=== PATIENT | female | born 1955 | race Caucasian/White ===

== ENCOUNTER 2019-02-28 10:49 | Emergency (ER) | payer BC ==
--- OUTSIDE RECORDS SUMMARY | 2019-02-28 10:58 | XMS REPORT | Continuity of Care Document ---
:1955 External Reference #:[id number] Author Name Nigel Lynne MD Address [address] [place] [address] Care Team Providers Name Role Phone Geremias Chery DO Care Team Information Sensor Technician Unavailable Geremias Chery DO Primary Care Physician Unavailable Payers Date Identification Numbers Payment Provider Subscriber Policy Number: [id number] [employer] Susi Gaffney PayID: [id number] [address] [address] [place] [address] Family History Date Family Member(s) Observation Comments Father Renal Failure Syndrome Father Hypertension Father Heart Disease Father Ulcer Mother Heart Murmur Social History Type Date Description Comments Sex Unknown Marital Status Lives With Occupation Currently Working ETOH Use Denies alcohol use Tobacco Use Start: Unknown Patient is a current smoker, smokes every day Recreational Drug Use Denies Drug Use Smoking Status Reviewed: 02/09/19 Patient is a current smoker, smokes every day Allergies, Adverse Reactions, Alerts Active Allergies Reaction Severity Comments Date Penicillin 09/19/2018 Clindamycin 09/19/2018 Medications Active Medications SIG Qnty Indications Ordering Provider Date Uribel 1 tab by mouth 20caps Brunilda Vela, 09/19/2018 118mg Capsules up to four M.D. times a day daw_! Lorazepam prn Geremias Chery, DO 1mg Tablets Hydrocodone-Acetaminop prn Geremias Chery, DO hen 5-325mg Tablets Co Q 10 1 by mouth Unknown 100mg Capsules every day GNP [place] Biloba 1 cap daily Unknown Extract 60mg Capsules Zinc And Vitamin C 1 po daily Unknown Gummies Multi For Her 1 tab by mouth Unknown Tablets every daily Michelle Puente MD 90mg/ml Soln Prefill Syringe History Medications Humira Every 2 weeks Unknown - 11/14/2018 40mg/0.4ML PSKT Vital Signs Date Vital Result Comment 11/14/2018 9:21am BP Systolic Sitting Left Arm 112 mmHg BP Diastolic Sitting Left Arm 77 mmHg Body Temperature 98.0 F Heart Rate 82 /min Respiratory Rate 16 /min Height 58 inches 4'10" Weight 93.50 lb BMI (Body Mass Index) 19.5 kg/m2 BSA (Body Surface Area) 1.32 m2 [place] body weight in kilograms 45 kg O2 % BldC Oximetry 93 % cold fingers Pain Level 0 09/19/2018 10:21am BP Systolic 118 mmHg BP Diastolic 81 mmHg Body Temperature 97.2 F Heart Rate 84 /min Respiratory Rate 16 /min Height 58 inches 4'10" Weight 94.12 lb BMI (Body Mass Index) 19.7 kg/m2 BSA (Body Surface Area) 1.32 m2 [place] body weight in kilograms 45 kg O2 % BldC Oximetry 98 % Results Test Date Facility Test Result H/L Range Note Urine Dipstick 11/14/2018 [facility]a Color yellow Yellow Ua Clarity clear Clear Ua Leuko negative Negative Ua Nitrite negative Negative Ua Urobilinogen 0.2 0.2 - 1.0 E.U./dL Ua Protein 15 High Negative Ua PH 6.0 Low 6.5-7.5 Ua Blood negative Negative Ua Specific Mccarr 1.020 1.010-1.030 Ua Ketones negative Negative Ua Bilirubin negative Negative Ua Glucose negative Negative Laboratory test 11/10/2015 [facility] Troponin-I < 0.015 [address] ng/[place] [address] [phone] Laboratory test 11/10/2015 N2N/CCD Import Urine Bilirubin Negative Negative finding Urine Blood Trace Negative Urine Clarity Clear Clear Urine Color Yellow Yellow Urine Glucose (Ua) Negative Negative Urine Ketones Negative Negative Urine Leukocyte Esterase Negative Negative Urine Nitrite Negative Negative Urine Protein Negative Negative Urine Urobilinogen 0.2 0.2-1.0 Urine pH 5.0 Low 6.5-7.5 Laboratory test 11/10/2015 N2N/CCD Import Alanine Aminotransferase 28 12 -78 finding (Alt/SGPT) Albumin 3.5 3.4-5.0 Albumin/Globulin Ratio 0.8 Alkaline Phosphatase 144 High 45-117 Anion Gap 7 Low 8-16 Aspartate Amino Transf (Ast/Sgot) 21 15-37 BUN/Creatinine Ratio 20.0 Blood Urea Nitrogen 18 7-18 Calcium Level 8.6 8.5-10.1 Carbon Dioxide Level 23 21-32 Chloride Level 108 High 98-107 Creatinine 0.9 0.6-1.3 Globulin 4.5 High 1.9-4.3 Glucose Screen 99 74-106 Hematocrit 38.3 36.0-46.1 Hemoglobin 12.5 11.6-15.8 Mean Corpuscular Hemoglobin 28.8 25.9-32.7 Mean Corpuscular Hemoglobin Concent 32.6 30.8-34.3 Mean Corpuscular Volume 88.2 80.9-99.0 Mean Platelet Volume 9.5 8.9-12.4 Platelet Count 375 High 155-360 Potassium Level 4.0 3.5-5.1 RDW Coefficient of Variation 13.8 11.7-14.4 Red Blood Count 4.34 3.90-5.40 Sodium Level 138 136-145 Total Bilirubin 0.4 0.2-1.0 Total Creatine Kinase 106 26-192 Total Protein 8.0 6.4-8.2 White Blood Count 6.5 3.1-10.7 1 0.0 - 0.045 ng/mL: Normal 0.046 - 0.5 ng/mL: Suggestive 0.6 - 1.5 ng/mL: Consistent Procedures Date Code Description Status 02/09/2019 53227 Eye Exam New Patient Comprehensive Completed 11/14/2018 82926 Measurement Post Voiding Residual Urine By Completed Ultrasound,Non-Imaging 12/27/2015 48973 ECHO Transthoracic Inc Performance Continuous Completed Electrocardio Mon Encounters Type Date Location Provider Dx Diagnosis Office Visit 11/14/2018 Urology Aron Diaz, N30.80 Other cystitis 9:15a [place] without hematuria Office Visit 09/19/2018 Urology Aron Diaz, N30.80 Other cystitis 10:30a [place] without hematuria N20.0 Calculus of kidney Office Visit 11/10/2015 8:58a Cardiology Office Juan Carlos Moore MD M79.602 Pain in left arm Plan of Treatment Future Appointment(s):05/12/2019 8:45 am - Nigel Lynne MD at Ophthalmology
--- OUTSIDE RECORDS SUMMARY | 2019-02-28 10:58 | XMS REPORT | Continuity of Care Document ---
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 Unavailable Payers Date Identification Numbers Payment Provider Subscriber Effective: 2017 Policy Number: [id number] [employer] Susi Gaffney Group Number: [employer] [address] [address] Group Name: [facility] [place] [id number] PayID: [id number] Effective: 2019 Policy Number: [id number] Medicare Part B Susi Gaffney Group Name: [facility] [address] PayID: [id number] [place] [address] Problems Active Problems Provider Date Tobacco user Geremias Chery DO Onset: 06/04/2014 Crohn's disease of small AND large intestines Geremias Chery DO Onset: 06/04 Social History Type Date Description Comments Sex Unknown Education Higest level completed, Bachelor's Degree 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 Tobacco Use Start: Unknown Current Cigarette Smoker 5-10 Cigarettes Daily ETOH Use Occasionally consumes wine Recreational Drug Use Denies Drug Use Allergies, Adverse Reactions, Alerts Active Allergies Reaction Severity Comments Date Penicillin 06/04/2014 Clindamycin Lump In Throat 12/06/2016 Medications Active Medications SIG Qnty Indications Ordering Date Provider Azithromycin 2 tablets by 6tabs J20.9 Geremias Chery, 02/24/2019 250mg mouth on day 1 DO Tablets then 1 tablet on days 2-5 Coq-10 Geremias Chery, 08/26/2018 100mg Capsules DO ER Hydrocodone-Acetamino 1 by mouth every 120tabs Chery, Geremias, 08/07/2016 phen 6 hours as needed DO 5-325mg Tablets Lorazepam 1/2 to 1 by mouth 30tabs Chery, Geremias, 12/07/2014 1mg Tablets every night at DO bedtime as needed anxiety - do not fill until 02/11/19 Stelara Unknown 45mg/0.5ML Solution Prednisone take 8 tablets Unknown 5mg (48) one day then TBPK decrease by 1 tablet everyday until they are gone History Medications Azithromycin 2 tablets by 6tabs J20.9 Chery, 11/28/2018 - 250mg mouth on day 1 Geremias, DO 12/03/2018 Tablets then 1 tablet on days 2-5 Albuterol Sulfate HFA 2 puffs every 4-6 8.500gm J20.9 Chery, 11/28/2018 - hours as needed Geremias, DO 01/16/2019 108(90Base) mcg/Act for cough, sob, Aerosol wheezing Tamsulosin HCL 1 by mouth every 14caps Chery, 08/30/2018 - 0.4mg day Geremias, DO 11/28/2018 Capsules Nitrofurantoin Monohyd 1 by mouth twice 14caps R30.0 Chery, 08/26/2018 - Macro a day x 7 days Geremias, DO 09/02/2018 100mg Capsules Azithromycin 1 by mouth every 7tabs Chery, 01/29/2018 - 500mg day Geremias, DO 02/05/2018 Tablets Phenazopyridine HCL 1 by mouth three 6tabs Chery, 10/11/2017 - 200mg times a day Geremias, DO 01/29/2018 Tablets Sulfamethoxazole/Trime 1 tablet by mouth 14tabs J01.90 Chery, 10/09/2017 - thoprim DS twice daily for 7 Geremias, DO 10/16/2017 800-160mg days Tablets Betamethasone 1 thin 15gm R21 Chery, 06/19/2017 - Dipropionate application to Geremias, DO 01/29/2018 0.05% Cream chest twice daily for 10 days Prednisone 3 pills daily x 5 30tabs Chery, 07/27/2016 - 10mg Tablets days, then 2 Geremias, DO 08/07/2016 pills daily x 5 days, then 1 pills daily x 5 days Prednisone 2 by mouth with 10tabs M54.5 Chery, 07/11/2016 - 20mg Tablets food once a day Geremias, DO 07/16/2016 Tylenol With Codeine 1 po q 6 hours 30tabs M25.551 Chery, 05/17/2016 - #3 prn pain Geremias, DO 07/11/2016 300-30mg Tablets Azithromycin 2 by mouth x 1, 6tabs K05.01 Chery, 05/07/2016 - 250mg then 1 by mouth Geremias, DO 05/12/2016 Tablets daily x 4 days Clindamycin HCL 1 by mouth twice 14caps K05.01 Chery, 05/05/2016 - 300mg a day Geremias, DO 05/07/2016 Capsules Fluticasone Propionate 1 spray each 16units H68.002 Chery, 05/05/2016 - nostril twice a Geremias, DO 04/23/2018 50mcg/Act Suspension day Sertraline HCL 1 by mouth every 90tabs F43.0 Chery, 12/13/2015 - 50mg day Geremias, DO 01/11/2016 Tablets Nasonex 2 sprays each 34gm Chery, 06/15/2015 - 50mcg/Act nostril every day Geremias, DO 10/09/2017 Suspension Veramyst 2 sprays each 10gm J30.9 Chery, 06/14/2015 - 27.5mcg/[place] nostril 1-2 times Geremias, DO 06/14/2015 Suspension a day Fluticasone Propionate 1 spray each 1units J30.9 Chery, 06/14/2015 - nostril 1-2 times Geremias, DO 06/15/2015 50mcg/Act Suspension a day Azithromycin 1 by mouth every 5tabs J02.9 Chery, 05/09/2015 - 500mg day Geremias, DO 05/14/2015 Tablets Oxybutynin Chloride 1 by mouth every 90tabs Chery, 10/22/2014 - 5mg night at bedtime Geremias, DO 01/25/2017 Tablets Lorazepam 1 by mouth every 30tabs Chery, 06/04/2014 - 0.5mg Tablets night at bedtime Geremias, DO 12/07/2014 as needed anxiety Oxybutynin Chloride 1 by mouth QHS 90units Unknown - 10/22/2014 5mg/5ML Syrup Remicade DR Dinero/Hannah Unknown - 100mg Solution Medical 05/17/2016 Kami Disla Q2 Weeks Unknown - Injections 11/28/2018 Prednisone 1 by mouth every Unknown - 5mg Tablets day 01/16/2019 Immunizations CPT Code Status Date Vaccine Lot # [id number] Refused 01/19/2019 Tdap (Adacel) Ages 7 And Above Only [id number] Refused 04/23/2018 Afluria Imunization Vital Signs Date Vital Result Comment 02/24/2019 10:57am Body Temperature 97.0 F Weight 104.00 lb Heart Rate 87 /min BP Systolic 120 mmHg BP Diastolic 78 mmHg Respiratory Rate 18 /min Height 58 inches 4'10" O2 % BldC Oximetry 98 % BMI (Body Mass Index) 21.7 kg/m2 01/19/2019 9:05am Weight 94.00 lb Heart Rate 88 /min BP Systolic 110 mmHg BP Diastolic 68 mmHg Respiratory Rate 18 /min Height 58 inches 4'10" BMI (Body Mass Index) 19.6 kg/m2 11/28/2018 1:47pm Body Temperature 97.9 F Weight 94.00 lb Heart Rate 87 /min BP Systolic 120 mmHg BP Diastolic 80 mmHg Respiratory Rate 18 /min Height 58 inches 4'10" O2 % BldC Oximetry 97 % BMI (Body Mass Index) 19.6 kg/m2 08/26/2018 10:47am Body Temperature 98.4 F Weight 91.00 lb Heart Rate 78 /min BP Systolic 120 mmHg BP Diastolic 78 mmHg Respiratory Rate 18 /min Height 58 inches 4'10" BMI (Body Mass Index) 19.0 kg/m2 07/18/2018 2:52pm Weight 94.00 lb Heart Rate 84 /min BP Systolic 110 mmHg BP Diastolic 60 mmHg Respiratory Rate 17 /min Height 58 inches 4'10" BMI (Body Mass Index) 19.6 kg/m2 04/23/2018 1:54pm Weight 94.00 lb Heart Rate 92 /min BP Systolic 112 mmHg BP Diastolic 64 mmHg Respiratory Rate 16 /min Height 58 inches 4'10" (01/2017) BMI (Body Mass Index) 19.6 kg/m2 01/29/2018 8:31am Body Temperature 100.9 F Weight 93.00 lb Heart Rate 108 /min BP Systolic 118 mmHg BP Diastolic 62 mmHg Respiratory Rate 17 /min Height 58 inches 4'10" (01/2017) O2 % BldC Oximetry 94 % BMI (Body Mass Index) 19.4 kg/m2 10/09/2017 4:16pm Body Temperature 97.4 F Weight 101.00 lb Heart Rate 68 /min BP Systolic 140 mmHg BP Diastolic 80 mmHg Respiratory Rate 18 /min Height 58 inches 4'10" (01/2017) BMI (Body Mass Index) 21.1 kg/m2 07/31/2017 8:40am Weight 98.00 lb Heart Rate 92 /min BP Systolic 114 mmHg BP Diastolic 78 mmHg Respiratory Rate 16 /min Height 58 inches 4'10" (01/2017) BMI (Body Mass Index) 20.5 kg/m2 06/19/2017 10:24am Body Temperature 97.6 F Weight 101.00 lb Heart Rate 82 /min BP Systolic 128 mmHg BP Diastolic 80 mmHg Respiratory Rate 18 /min Height 58 inches 4'10" (01/2017) BMI (Body Mass Index) 21.1 kg/m2 01/25/2017 8:26am Weight 102.00 lb Heart Rate 80 /min BP Systolic 128 mmHg BP Diastolic 74 mmHg Respiratory Rate 18 /min Height 58 inches 4'10" (01/2017) BMI (Body Mass Index) 21.3 kg/m2 01/04/2017 4:07pm Weight 102.00 lb Heart Rate 104 /min BP Systolic 154 mmHg BP Diastolic 94 mmHg Respiratory Rate 17 /min Height 58 inches 4'10" (01/2017) BMI (Body Mass Index) 21.3 kg/m2 12/06/2016 11:13am Body Temperature 97.8 F Weight 101.00 lb Heart Rate 72 /min BP Systolic 134 mmHg BP Diastolic 72 mmHg Respiratory Rate 18 /min Height 58 inches 4'10" BMI (Body Mass Index) 21.1 kg/m2 08/15/2016 9:13am Weight 101.00 lb Heart Rate 72 /min BP Systolic 138 mmHg BP Diastolic 82 mmHg Respiratory Rate 17 /min Height 58 inches 4'10" (07/2016) BMI (Body Mass Index) 21.1 kg/m2 07/11/2016 9:53am Weight 102.00 lb Heart Rate 98 /min BP Systolic 134 mmHg BP Diastolic 80 mmHg Respiratory Rate 17 /min Height 58 inches 4'10" (07/2016) BMI (Body Mass Index) 21.3 kg/m2 05/17/2016 11:24am Weight 100.00 lb Heart Rate 78 /min BP Systolic 134 mmHg BP Diastolic 78 mmHg Respiratory Rate 16 /min Height 58 inches 4'10" BMI (Body Mass Index) 20.9 kg/m2 05/05/2016 9:04am Body Temperature 97.4 F Weight 100.00 lb Heart Rate 76 /min BP Systolic 120 mmHg BP Diastolic 80 mmHg Respiratory Rate 18 /min Height 58 inches 4'10" BMI (Body Mass Index) 20.9 kg/m2 01/11/2016 10:08am Weight 100.00 lb Heart Rate 92 /min BP Systolic 104 mmHg BP Diastolic 62 mmHg Respiratory Rate 17 /min Height 58 inches 4'10" BMI (Body Mass Index) 20.9 kg/m2 12/13/2015 9:07am Weight 102.00 lb Heart Rate 72 /min BP Systolic 150 mmHg BP Diastolic 90 mmHg BP Systolic Recheck 140 mmHg BP Diastolic Recheck 88 mmHg Respiratory Rate 18 /min Height 58 inches 4'10" BMI (Body Mass Index) 21.3 kg/m2 06/14/2015 9:07am Body Temperature 96.9 F Weight 96.00 lb Heart Rate 84 /min BP Systolic 118 mmHg BP Diastolic 76 mmHg Respiratory Rate 16 /min 05/09/2015 1:29pm Body Temperature 97.3 F Weight 97.00 lb Heart Rate 72 /min BP Systolic 128 mmHg BP Diastolic 64 mmHg Respiratory Rate 18 /min Height 58 inches 4'10" BMI (Body Mass Index) 20.3 kg/m2 12/07/2014 9:26am Weight 95.00 lb Heart Rate 82 /min BP Systolic 130 mmHg BP Diastolic 72 mmHg BP Systolic Recheck 110 mmHg BP Diastolic Recheck 74 mmHg Respiratory Rate 16 /min Height 58 inches 4'10" (05/2014) BMI (Body Mass Index) 19.9 kg/m2 06/04/2014 10:25am Weight 94.00 lb Heart Rate 84 /min BP Systolic 108 mmHg BP Diastolic 66 mmHg Respiratory Rate 16 /min Height 58 inches 4'10" (05/2014) Results Test Date Facility Test Result H/L Range Note Ua RFX Micro & 09/01/2018 [facility] Urine Color STRAW Yellow 1 Culture II (315)- - Urine Clarity CLEAR Clear Urine Glucose - Dipstick NEGATIVE mg/dL Negative Urine Bilirubin - Dipstick NEGATIVE Negative Urine Ketone NEGATIVE mg/dL Negative Urine Specific [place] <=1.005 Low 1.010-1.030 Urine Blood NEGATIVE Negative Urine PH 6.0 Low 6.5-7.5 Urine Protein - Dipstick NEGATIVE mg/dL Negative Urine Urobilinogen - Dipstick 0.2 E.U./dL N 0.2-1.0 Urine Nitrite - Dipstick NEGATIVE Negative Urine Leuk Esterase NEGATIVE Negative Source: URINE, CLEAN CAT <SEE NOTE> 2 CBS W/Automated Diff 09/01/2018 [facility] White Blood 7.0 K/uL N 3.1-10.7 (315)- - Count Red Blood Count 4.18 M/uL N 3.90-5.40 Hemoglobin 13.2 gm/dL N 11.6-15.8 Hematocrit 39.5 % N 36.0-46.1 Mean Cell Volume 94.5 fl N 80.9-99.0 Mean Corpuscular HGB 31.6 pg N 25.9-32.7 Mean Corpuscular HGB Conc 33.4 g/dL N 30.8-34.3 Platelet Count 291 K/uL N 155-360 Red Cell Distri Width SD 42.8 fl N 36-47 Red Cell Distri Width %CV 12.7 % N 11.7-14.4 Mean Platelet Volume 9.6 fL N 8.9-12.4 Neut% 71.2 % N 40.4-72.8 Lymph % 17.6 % Low 20.0-42.0 Bull[place] % 5.5 % N 4.3-13.2 Eo% 4.8 % N 0.0-6.6 Bas% 0.9 % N 0.0-1.1 Neut# 5.00 K/uL N 1.8-7.0 Lymph # 1.24 K/uL N 1.0-4.0 Bull[place] # 0.39 K/uL N 0.3-0.9 Eos # 0.34 K/uL N 0.0-0.5 Baso # 0.06 K/uL N 0.0-0.1 Laboratory test 08/26/2018 [facility] Cytology Fluid SEE NOTE 3 finding Specimen Laboratory test 08/26/2018 [facility] Urine Culture Microbiology res 4 finding <SEE NOTE> Laboratory test 04/18/2018 [facility] Lipase 249 U/L N 56-289 5 finding (315)- - Troponin-I < 0.015 ng/mL 6 Comprehensive Metabolic 04/18/2018 [facility] Glucose 111 mg/dL High 74-106 Panel (315)- - BUN 18 mg/dL N 7-18 Creatinine 0.9 mg/dL N 0.6-1.3 Glom Filtration Rate, Estimate >60 mL/min >60 If >60 mL/min >60 7 BUN/Creat 20.0 ratio Sodium 141 mmol/L N 136-145 Potassium 3.9 mmol/L N 3.5-5.1 Chloride 105 mmol/L N 98-107 Carbon Dioxide 26 mmol/L N 21-32 Anion Gap 10 mEq/L N 8-16 Calcium 9.4 mg/dL N 8.5-10.1 Total Protein 7.9 g/dL N 6.4-8.2 Albumin 3.6 g/dL N 3.4-5.0 Globulin 4.3 g/dL N 1.9-4.3 Alb/Glob 0.8 ratio Bilirubin,Total 0.4 mg/dL N 0.2-1.0 Sgot/Ast 23 U/L N 15-37 SGPT/Alt 33 U/L N 12-78 Alkaline Phosphatase 135 U/L High 45-117 Laboratory test 04/18/2018 [facility] Troponin-I < 0.015 8 finding (315)- - ng/mL CBS W/Automated 04/18/2018 [facility] White Blood Count 6.9 K/uL N 3.1-10. Diff (315)- - 7 Red Blood Count 4.81 M/uL N 3.90-5.40 Hemoglobin 15.5 gm/dL N 11.6-15.8 Hematocrit 45.4 % N 36.0-46.1 Mean Cell Volume 94.4 fl N 80.9-99.0 Mean Corpuscular HGB 32.2 pg N 25.9-32.7 Mean Corpuscular HGB Conc 34.1 g/dL N 30.8-34.3 Platelet Count 323 K/uL N 155-360 Red Cell Distri Width SD 44.1 fl N 3-47 Red Cell Distri Width %CV 13.1 % N 11.7-14.4 Mean Platelet Volume 9.3 fL N 8.9-12.4 Neut% 73.0 % High 40.4-72.8 Lymph % 15.6 % Low 20.0-42.0 Bull[place] % 5.8 % N 4.3-13.2 Eo% 4.7 % N 0.0-6.6 Bas% 0.9 % N 0.0-1.1 Neut# 5.01 K/uL N 1.8-7.0 Lymph # 1.07 K/uL N 1.0-4.0 Bulloch # 0.40 K/uL N 0.3-0.9 Eos # 0.32 K/uL N 0.0-0.5 Baso # 0.06 K/uL N 0.0-0.1 Ua RFX Micro & 04/18/2018 [facility] Urine Color YELLOW Yellow Culture II (315)- - Urine Clarity CLEAR Clear Urine Glucose - Dipstick NEGATIVE mg/dL Negative Urine Bilirubin - Dipstick NEGATIVE Negative Urine Ketone NEGATIVE mg/dL Negative Urine Specific [place] <=1.005 Low 1.010-1.030 Urine Blood NEGATIVE Negative Urine PH 6.0 Low 6.5-7.5 Urine Protein - Dipstick NEGATIVE mg/dL Negative Urine Urobilinogen - Dipstick 0.2 E.U./dL N 0.2-1.0 Urine Nitrite - Dipstick NEGATIVE Negative Urine Leuk Esterase NEGATIVE Negative Source: URINE, CLEAN CAT <SEE NOTE> 9 CBC with Auto Diff-fcmg 01/29/2018 [facility] WBC 12.2 K/uL High 4.1-11.0 RBC 4.48 M/uL 4.00-5.40 Hemoglobin 14.2 gm/dL 12.0-16.0 Hematocrit 41.9 % 36.0-47.0 MCV 93.5 fL 80.0-97.0 MCH 31.7 pg 27.0-32.0 MCHC 33.9 g/dL 32.0-36.0 RDW 13.4 % 11.5-14.5 PLT Count 270 K/ul 140-400 MPV 8.4 FL 7.1-10.7 Neutrophil 87.7 % High 35.0-75.0 Lymphocyte 5.3 % Low 16.0-52.0 Monocyte 5.0 % 2.0-10.0 Eosinophil 1.7 % 0.0-5.0 Basophil 0.3 % 0.0-4.0 Abs Neutrophils 10.7 K/uL High 2.1-8.0 Abs Lymphocytes 0.6 K/uL Low 0.8-5.5 Abs Monocytes 0.6 K/uL 0.1-1.0 Abs Eosinophils 0.2 K/uL 0.0-0.5 Abs Basophils 0.0 K/uL 0.0-0.3 Comprehensive Met Panel-FCMG 01/29/2018 [facility] Sodium 139 mmol/L 135- 146 10 Potassium 4.2 mmol/L 3.5-5.2 Chloride# 103 mmol/L 97-110 11 Carbon Dioxide 23 mmol/L Low 24-34 Glucose 118 mg/dL High 70-105 BUN 15 mg/dL 6-26 Creatinine 0.8 mg/dL 0.5-1.4 Calcium 9.3 mg/dL 8.5-10.2 Total Protein 6.9 g/dL 6.0-8.0 Albumin 3.8 g/dL 3.6-4.9 Globulin 3.1 g/dL 2.0-3.5 A/G Ratio 1.2 Ratio 1.0-2.2 Total Bilirubin 0.4 mg/dL 0.1-1.3 Alkaline Phosphatase 142 U/L High 24-140 Alt 27 U/L 3-42 Ast 26 U/L 8-42 Tasneem Egfr >60 >60 12 Non Tasneem Egfr >60 >60 13 Anion Gap 13 mmol/L 5-15 14 Laboratory test finding 01/29/2018 [facility] Vitamin B12 255 pg/mL 180- 914 TSH 1.63 uIU/mL 0.35-4.94 Esr 81 mm/hr High 0-20 CRP (C-Reactive) 8.00 mg/dL High 0.00-0.75 Laboratory test 10/09/2017 [facility] Urine Culture Microbiology res 15 finding <SEE NOTE> Basic (BMP) 12/06/2016 [facility] Sodium 142 mmol/L 135-146 16 Potassium 4.5 mmol/L 3.5-5.2 Chloride# 107 mmol/L 97-110 17 Carbon Dioxide 27 mmol/L 24-34 Glucose 71 mg/dL 70-105 BUN 13 mg/dL 6-26 Creatinine 0.8 mg/dL 0.5-1.4 Calcium 9.7 mg/dL 8.5-10.2 Non Tasneem Egfr >60 >60 18 Tasneem Egfr >60 >60 19 Anion Gap 13 mmol/L 7-16 20 [facility] res 21 finding <SEE NOTE> CBS W/Automated 06/30/2016 [facility] White Blood 6.4 K/ uL N 3.1-10 22 Diff (315)- - Count .7 Red Blood Count 4.07 M/uL N 3.90-5.40 Hemoglobin 11.5 gm/dL Low 11.6-15.8 Hematocrit 34.9 % Low 36.0-46.1 Mean Cell Volume 85.7 fl N 80.9-99.0 Mean Corpuscular HGB 28.3 pg N 25.9-32.7 Mean Corpuscular HGB Conc 33.0 g/dL N 30.8-34.3 Platelet Count 374 K/uL High 155-360 Red Cell Distri Width SD 44.2 fl N 3-47 Red Cell Distri Width %CV 14.5 % High 11.7-14.4 Mean Platelet Volume 9.5 fL N 8.9-12.4 Neut% 54.7 % N 40.4-72.8 Lymph % 31.9 % N 17.0-46.1 Bulloch % 7.5 % N 4.3-13.2 Eo% 5.3 % N 0.0-6.6 Bas% 0.6 % N 0.0-1.1 Neut# 3.52 K/uL N 1.8-7.0 Lymph # 2.05 K/uL N 1.8-7.0 Bull[place] # 0.48 K/uL N 0.3-0.9 Eos # 0.34 K/uL N 0.0-0.5 Baso # 0.04 K/uL N 0.0-0.1 Urinalysis With 06/30/2016 [facility] Urine Color YELLOW N Yellow Microscopic (315)- - Urine Clarity CLEAR N Clear Urine Glucose - Dipstick NEGATIVE mg/dL N Negative Urine Bilirubin - Dipstick NEGATIVE N Negative Urine Ketone NEGATIVE mg/dL N Negative Urine Specific [place] 1.020 N 1.010-1.030 Urine Blood LARGE Abnormal Negative Urine PH 5.0 Low 6.5-7.5 Urine Protein - Dipstick 30 mg/dL High Negative Urine Urobilinogen - Dipstick 0.2 E.U./dL N 0.2-1.0 Urine Nitrite - Dipstick NEGATIVE N Negative Urine Leuk Esterase TRACE Abnormal Negative Urine RBC 30-50 rbc/hpf High 0-2 Urine WBC 0-2 wbc/hpf N 0-7 Urine Epithelial Cells MODERATE /lpf N None Seen 23 Urine Bacteria FEW N None Seen Urine Mucus VERY FEW N None Seen Source: URINE, CLEAN CAT <SEE NOTE> 24 Comprehensive Metabolic 06/30/2016 [facility] Glucose 99 mg/dL N 74-106 Panel (315)- - BUN 17 mg/dL N 7-18 Creatinine 1.1 mg/dL N 0.6-1.3 Glom Filtration Rate, Estimate 53 mL/min N >60 If >60 mL/min N >60 25 BUN/Creat 15.4 ratio N Sodium 142 mmol/L N 136-145 Potassium 3.4 mmol/L Low 3.5-5.1 Chloride 108 mmol/L High 98-107 Carbon Dioxide 25 mmol/L N 21-32 Anion Gap 9 mEq/L N 8-16 Calcium 8.4 mg/dL Low 8.5-10.1 Total Protein 7.5 g/dL N 6.4-8.2 Albumin 3.3 g/dL Low 3.4-5.0 Globulin 4.2 g/dL N 1.9-4.3 Alb/Glob 0.8 ratio N Bilirubin,Total 0.4 mg/dL N 0.2-1.0 Sgot/Ast 25 U/L N 15-37 SGPT/Alt 26 U/L N 12-78 Alkaline Phosphatase 150 U/L High 45-117 Urinalysis With 06/28/2016 [facility] Urine Color YELLOW N Yellow 26 Microscopic (315)- - Urine Clarity SL CLOUDY N Clear Urine Glucose - Dipstick NEGATIVE mg/dL N Negative Urine Bilirubin - Dipstick NEGATIVE N Negative Urine Ketone NEGATIVE mg/dL N Negative Urine Specific [place] >=1.030 N 1.010-1.030 Urine Blood LARGE Abnormal Negative Urine PH 5.5 Low 6.5-7.5 Urine Protein - Dipstick 100 mg/dL High Negative Urine Urobilinogen - Dipstick 0.2 E.U./dL N 0.2-1.0 Urine Nitrite - Dipstick NEGATIVE N Negative Urine Leuk Esterase NEGATIVE N Negative Urine RBC TNTC rbc/hpf High 0-2 Urine WBC 2-5 wbc/hpf N 0-7 Urine Epithelial Cells FEW /lpf N None Seen Urine Bacteria MANY Abnormal None Seen Urine Mucus SMALL N None Seen Source: URINE, CLEAN CAT <SEE NOTE> 27 Urine Culture 06/28/2016 [facility] Urine Culture MIXED URETHRAL F 28 (315)- - <SEE NOTE> Quantity 10,000 - 50,000 <SEE NOTE> N 29 CBS W/Automated Diff 06/28/2016 [facility] White Blood 8.6 K/uL N 3.1-10.7 (315)- - Count Red Blood Count 4.17 M/uL N 3.90-5.40 Hemoglobin 12.0 gm/dL N 11.6-15.8 Hematocrit 36.0 % N 36.0-46.1 Mean Cell Volume 86.3 fl N 80.9-99.0 Mean Corpuscular HGB 28.8 pg N 25.9-32.7 Mean Corpuscular HGB Conc 33.3 g/dL N 30.8-34.3 Platelet Count 378 K/uL High 155-360 Red Cell Distri Width SD 45.8 fl N 3-47 Red Cell Distri Width %CV 14.7 % High 11.7-14.4 Mean Platelet Volume 9.9 fL N 8.9-12.4 Neut% 78.7 % High 40.4-72.8 Lymph % 15.3 % Low 17.0-46.1 Bull[place] % 3.7 % Low 4.3-13.2 Eo% 1.9 % N 0.0-6.6 Bas% 0.4 % N 0.0-1.1 Neut# 6.74 K/uL N 1.8-7.0 Lymph # 1.31 K/uL Low 1.8-7.0 Bull[place] # 0.32 K/uL N 0.3-0.9 Eos # 0.16 K/uL N 0.0-0.5 Baso # 0.03 K/uL N 0.0-0.1 Comprehensive Metabolic 06/28/2016 [facility] Glucose 96 mg/dL N 74-106 Panel (315)- - BUN 18 mg/dL N 7-18 Creatinine 0.8 mg/dL N 0.6-1.3 Glom Filtration Rate, Estimate >60 mL/min N >60 If >60 mL/min N >60 30 BUN/Creat 22.5 ratio N Sodium 141 mmol/L N 136-145 Potassium 4.2 mmol/L N 3.5-5.1 Chloride 106 mmol/L N 98-107 Carbon Dioxide 25 mmol/L N 21-32 Anion Gap 10 mEq/L N 8-16 Calcium 8.8 mg/dL N 8.5-10.1 Total Protein 8.1 g/dL N 6.4-8.2 Albumin 3.6 g/dL N 3.4-5.0 Globulin 4.5 g/dL High 1.9-4.3 Alb/Glob 0.8 ratio N Bilirubin,Total 0.4 mg/dL N 0.2-1.0 Sgot/Ast 25 U/L N 15-37 SGPT/Alt 30 U/L N 12-78 Alkaline Phosphatase 155 U/L High 45-117 Laboratory test 06/28/2016 [facility] Lipase 231 U/L N 73-393 finding (315)- - CBC 11/10/2015 [facility] White Blood 6.5 K/uL 3.1- 10.7 (315)- - Count Red Blood Count 4.34 M/uL 3.90-5.40 Hemoglobin 12.5 gm/dL 11.6-15.8 Hematocrit 38.3 % 36.0-46.1 Mean Cell Volume 88.2 fl 80.9-99.0 Mean Corpuscular HGB 28.8 pg 25.9-32.7 Mean Corpuscular HGB Conc 32.6 g/dL 30.8-34.3 Platelet Count 375 K/uL High 155-360 Red Cell Distri Width %CV 13.8 % 11.7-14.4 Mean Platelet Volume 9.5 fL 8.9-12.4 Laboratory test finding 11/10/2015 [facility] CK 106 U/L 26-192 (315)- - Troponin-I < 0.015 ng/mL 31 Comprehensive Metabolic 11/10/2015 [facility] Glucose 99 mg/dL 74-106 Panel (315)- - BUN 18 mg/dL 7-18 Creatinine 0.9 mg/dL 0.6-1.3 Glom Filtration Rate, Estimate >60 mL/min >60 If >60 mL/min >60 32 BUN/Creat 20.0 ratio Sodium 138 mmol/L 136-145 Potassium 4.0 mmol/L 3.5-5.1 Chloride 108 mmol/L High 98-107 Carbon Dioxide 23 mmol/L 21-32 Anion Gap 7 mEq/L Low 8-16 Calcium 8.6 mg/dL 8.5-10.1 Total Protein 8.0 g/dL 6.4-8.2 Albumin 3.5 g/dL 3.4-5.0 Globulin 4.5 g/dL High 1.9-4.3 Alb/Glob 0.8 ratio Bilirubin,Total 0.4 mg/dL 0.2-1.0 Sgot/Ast 21 U/L 15-37 SGPT/Alt 28 U/L 12-78 Alkaline Phosphatase 144 U/L High 45-117 Urine Screen 11/10/2015 [facility] Urine Color YELLOW Yellow (315)- - Urine Clarity CLEAR Clear Urine Glucose - Dipstick NEGATIVE mg/dL Negative Urine Bilirubin - Dipstick NEGATIVE Negative Urine Ketone NEGATIVE mg/dL Negative Urine Specific [place] <=1.005 Low 1.010-1.030 Urine Blood TRACE Negative Urine PH 5.0 Low 6.5-7.5 Urine Protein - Dipstick NEGATIVE mg/dL Negative Urine Urobilinogen - Dipstick 0.2 E.U./dL 0.2-1.0 Urine Nitrite - Dipstick NEGATIVE Negative Urine Leuk Esterase NEGATIVE Negative Laboratory test 11/10/2015 [facility] Troponin-I < 0.015 33 finding (315)- - ng/mL Laboratory test 07/26/2015 [facility] Endometrial See Note 34 finding (315)- - Curettage Laboratory test 06/15/2015 [facility] CA 125 7.0 U/ml 0.0-3 35, 36 finding 5.0 Laboratory test 06/15/2015 [facility] Afp-Tumor Marker 1.0 ng/mL (<6.0 37 finding ) LDH 136 U/L (84-246) 38 Beta HCG, Tumor Marker 5 IU/L 39 Laboratory test finding 05/09/2015 [facility] Throat PO Culture SEE NOTE 40 Lipid Panel 06/09/2014 N2N/CCD Import Chol/HDL Ratio 3.1 ratio Cholesterol 144.0 mg/dL 50.0-199.0 HDL 47.0 mg/dL 29.0-86.0 LDL, Calculated 69.4 mg/dL 20.0-129.0 Triglycerides 138.0 mg/dL 30.0-249.0 vLDL 27.6 ng/dL 1 POSS KIDNEY STONE 2 URINE, CLEAN CATCH 3 LABORATORY [facility] [facility]. [address] [place] [id number] MISCELLANEOUS CYTOLOGY REPORT Source of Specimen(s): A: LBP Urine, Voided Clinical Diagnosis and History: R30.0 Gross Description LBP Urine, Voided: 20 cc clear yellow fluid. Final Diagnosis Specimen Adequacy Satisfactory Final Diagnosis VOIDED URINE: NEGATIVE FOR HIGH-GRADE UROTHELIAL CARCINOMA The specimen contains urothelial cells, background squamous cells and histiocytes. Processed and screen As applicable, positive and negative controls for all immunohistochemical and/or special stains were reviewed and considered appropriate. Reported: 08/27/2018 16:29 Electronically Signed Out By Juan R Brown MD [facility] Sales Communications Manager: Maria E RAMOS([facility] [place]) [facility] ICD Code: R30.0 CPT Code: A: 67935C Unless otherwise specified, testing performed by [address] [id number] Microbiology results SOURCE Random urine FINAL RESULT No growth 5 CP 6 0.0 - 0.045 ng/mL: Normal 0.046 - 0.5 ng/mL: Suggestive 0.6 - 1.5 ng/mL: Consistent 7 Note: Persistent reduction for 3 months or more in an eGFR <60 mL/min/1.73 m2 defines CKD. Patients with eGFR values >/=60 mL/min/1.73 m2 may also have CKD if evidence of persistent proteinuria is present. The original MDRD equation for estimated GFR is not valid for patients less than 18 years of age. Additional information may be found at [email or web address]. 8 0.0 - 0.045 ng/mL: Normal 0.046 - 0.5 ng/mL: Suggestive 0.6 - 1.5 ng/mL: Consistent 9 URINE, CLEAN CATCH 10 Updated reference range on new analyzer 11 Updated reference range on new analyzer 12 Concerning GFR Guidelines for Americans: Normal function or mild renal disease, if clinically at risk: >/=60 mL/min Moderately decreased: 30-59 Severely decreased: 15-29 Renal failure: <15 13 Concerning GFR Guidelines: Normal function or mild renal disease, if clinically at risk: >/=60 mL/min Moderately decreased: 30-59 Severely decreased: 15-29 Renal failure: <15 Glomerular Filtration Rate (GFR) is estimated based on the MDRD equation, which assumes a steady state for creatinine as recommended by the National Kidney Disease Education Program in conjunction with the National Institutes of Health and the National Kidney Foundation. Clinical conditions in which it may be necessary to measure GFR by using clearance methods include extremes of age and body size, severe malnutrition or obesity, diseases of skeletal muscle, paraplegia or quadriplegia, vegetarian diet, rapidly changing kidney function, and calculation of the dose of potentially toxic drugs that are excreted by the kidneys. 14 Updated Reference Range 15 Microbiology results SOURCE Random urine FINAL RESULT No growth 16 Updated reference range on new analyzer 17 Updated reference range on new analyzer 18 Concerning GFR Guidelines: Normal function or mild renal disease, if clinically at risk: >/=60 mL/min Moderately decreased: 30-59 Severely decreased: 15-29 Renal failure: <15 Glomerular Filtration Rate (GFR) is estimated based on the MDRD equation, which assumes a steady state for creatinine as recommended by the National Kidney Disease Education Program in conjunction with the National Institutes of Health and the National Kidney Foundation. Clinical conditions in which it may be necessary to measure GFR by using clearance methods include extremes of age and body size, severe malnutrition or obesity, diseases of skeletal muscle, paraplegia or quadriplegia, vegetarian diet, rapidly changing kidney function, and calculation of the dose of potentially toxic drugs that are excreted by the kidneys. 19 Concerning GFR Guidelines for Americans: Normal function or mild renal disease, if clinically at risk: >/=60 mL/min Moderately decreased: 30-59 Severely decreased: 15-29 Renal failure: <15 20 Updated reference range on new analyzer 21 Microbiology results SOURCE Clean Catch Midstream FINAL RESULT No growth 22 KIDNEY STONE PAIN WORSE 23 POSSIBLE UROGENITAL CONTAMINATION. 24 URINE, CLEAN CATCH 25 Note: Persistent reduction for 3 months or more in an eGFR <60 mL/min/1.73 m2 defines CKD. Patients with eGFR values >/=60 mL/min/1.73 m2 may also have CKD if evidence of persistent proteinuria is present. The original MDRD equation for estimated GFR is not valid for patients less than 18 years of age. Additional information may be found at [email or web address]. 26 ?KIDNEY INFECTION 27 URINE, CLEAN CATCH 28 MIXED URETHRAL CLIFFORD 29 10,000 - 50,000 CFU/mL 30 Note: Persistent reduction for 3 months or more in an eGFR <60 mL/min/1.73 m2 defines CKD. Patients with eGFR values >/=60 mL/min/1.73 m2 may also have CKD if evidence of persistent proteinuria is present. The original MDRD equation for estimated GFR is not valid for patients less than 18 years of age. Additional information may be found at [email or web address]. 31 0.0 - 0.045 ng/mL: Normal 0.046 - 0.5 ng/mL: Suggestive 0.6 - 1.5 ng/mL: Consistent 32 Note: Persistent reduction for 3 months or more in an eGFR <60 mL/min/1.73 m2 defines CKD. Patients with eGFR values >/=60 mL/min/1.73 m2 may also have CKD if evidence of persistent proteinuria is present. The original MDRD equation for estimated GFR is not valid for patients less than 18 years of age. Additional information may be found at [email or web address]. 33 0.0 - 0.045 ng/mL: Normal 0.046 - 0.5 ng/mL: Suggestive 0.6 - 1.5 ng/mL: Consistent 34 OPERATION/PROCEDURE Hysteroscopy, D+C DIAGNOSIS: PART 1: "UTERUS, FUNDUS, ANTERIOR, BIOPSY": - BENIGN ENDOMETRIAL POLYP. PART 2: "UTERUS, RIGHT LATERAL, BIOPSY": - BENIGN ENDOMETRIAL POLYP. PART 3: "UTERUS, RIGHT CORNEAL, BIOPSY": - ENDOMETRIAL POLYP WITH CALCIFICATION AND FOCAL COMPLEX HYPERPLASIA WITHOUT ATYPIA. PART 4: "UTERUS, ENDOMETRIUM, CURETTAGE": - SCANT FRAGMENT OF ATROPHIC ENDOMETRIAL MUCOSA. - BENIGN ATROPHIC SQUAMOUS MUCOSA WITH NO SIGNIFICANT PATHOLOGIC ABNORMALITIES. - NO EVIDENCE OF NEOPLASIA. EP/clf [id number] GROSS Received in formalin in four properly labeled containers with the patient's name and accession number. Part one is designated, "FUNDAL ANTERIOR POLYPOID MASS". The specimen consists of multiple pieces of andino-white firm tissue with an aggregate measurement of 1.4 x 1.0 x 0.4 cm. Submitted entirely, one cassette. Part two is designated, "RIGHT LATERAL POLYPOID MASS". The specimen consists of multiple pieces of andino-white firm tissue with an aggregate measurement of 0.3 x 0.2 x 0.2 cm. Submitted entirely, one cassette. Part three is designated, "RIGHT CORNEAL POLYPOID MASS". The specimen consists of multiple pieces of andino-white, firm tissue with an aggregate measurement of 0.6 x 0.4 x 0.2 cm. Submitted entirely, one cassette. GROSS (Continued) Part four is designated, "ENDOMETRIAL CURETTINGS". The specimen consists of multiple pieces of andino, firm tissue with an aggregate measurement of 0.4 x 0.2 x 0.1 cm. The specimen is submitted entirely, one cassette. CC/clf PRE OPERATIVE DIAGNOSIS Ovarian cysts, thickened endometrium. REVIEW CODE CODE: I Signed Electronically signed Vinay DUGGAN MD 1200 [id number] F 4 [phone] P 1 [phone] STEW LEMUS NP FAX TO [facility] [place], [place] TEST: INHIBIN A DX CODE: N83.20 36 Beginning 09/30/06 CA125 values assayed at [facility] [employer] uses an EIA methodology manufactured by [employer] for use on the DXI analyzer. Values obtained with different assay methods or kits can not be used interchangeably. Serum CA125 measurement is not an absolute test for malignancy. The CA125 value should be used in conjunction with information available from clinical evaluation and other diagnostic procedures. 37 ASSAY BY IMMUNOCHEMILUMINOMETRIC ASSAY ON THE SIEMENS IMMULITE 2000 XPi. VALUES OBTAINED WITH DIFFERENT METHODS OR KITS CANNOT BE USED INTERCHANGEABLY FOR PATIENT MONITORING. RESULTS CANNOT BE INTERPRETED ABSOLUTE EVIDENCE OF THE PRESENCE OR ABSENCE OF MALIGNANCY. THE TEST IS NOT INTERPRETABLE IN . AFP CAN BE INCREASED IN A VARIETY OF BENIGN DISEASES. SPECIFICITY FOR THE DETECTION OF MALIGNANCY INCREASES WITH INCREASING LEVELS. Unless otherwise specified, testing performed by [facility] [employer] [place] [address] 38 Unless otherwise specified, testing performed by [facility] [place] [address] 39 Reference range: 0 to 5 INTERPRETIVE INFORMATION: Beta hCG, Serum Quantitation Tumor Marker Human chorionic gonadotropin (hCG) is a valuable aid in the management of patients with trophoblastic tumors, nonseminomatous testicular tumors and seminomas when used in conjunction with information available from the clinical evaluation and other diagnostic procedures. Increased serum HCG concentrations have also been observed in melanoma, carcinomas of the breast, gastrointestinal tract, lung, and ovaries, and in benign conditions, including cirrhosis, duodenal ulcer, and inflammatory bowel disease. This result cannot be interpreted as absolute evidence of the presence or absence of malignant disease. This result is not interpretable as a tumor marker in females. The combination of the specific monoclonal antibodies used in the [employer] Beta HCG electrochemiluminescent immunoassay recognize the holo-hormone, "nicked" forms of hCG, the beta-core fragment, and the free beta-subunit. Results obtained with different test methods or kits cannot be used interchangeably. Although this assay is FDA cleared for use in the detection of , it is not labeled for use as a tumor marker. Access complete set of age- and/or gender-specific reference intervals for this test in the [employer] [facility] Directory ([facility]). Test developed and characteristics determined by [facility]. See Compliance Statement B: [facility]/CS Performed by [facility], [address] [place] [id number] [email or web address], Sotero Kong MD, Lab. Director Unless otherwise specified, testing performed by [facility] [employer] [place] [address] 40 SPECIMEN DESCRIPTION THROAT SWAB CULTURE RESULTS NORMAL THROAT CLIFFORD NO BETA HEMOLYTIC STREPTOCOCCI ISOLATED REPORT STATUS FINAL 05/11/2015 Unless otherwise specified, testing performed by [facility] [address] [place] [id number] Procedures Date Code Description Status 02/24/2019 92690 Measure Blood Oxygen Level Single Determination Completed 11/28/2018 99299 Measure Blood Oxygen Level Single Determination Completed 10/08/2018 69770174 Colonoscopy Completed 01/29/2018 92011 Measure Blood Oxygen Level Single Determination Completed 07/25/2016 78351 MRI Spine Lumbar W/O Contrast Completed 06/21/2016 [id number] Bone Mineral Density Test Completed Encounters Type Date Location Provider Dx Diagnosis Office Visit 02/24/2019 [facility] Manju Bryson PA J20.9 Acute bronchitis, 10:45a unspecified M54.2 Cervicalgia Office Visit 01/19/2019 8:45a [facility] Geremias Chery DO K50.819 Crohn's disease of both small and lg int w unsp comp M54.5 Low back pain J30.9 Allergic rhinitis, unspecified G43.009 Migraine w/o aura, not intractable, w/o status migrainosus G47.00 Insomnia, unspecified F17.210 Nicotine dependence, cigarettes, uncomplicated N31.9 Neuromuscular dysfunction of bladder, unspecified M25.561 Pain in RIGHT knee M54.2 Cervicalgia M54.6 Pain in thoracic spine Z68.1 Body mass index (BMI) 19.9 or less, adult Office Visit 11/28/2018 1:45p [facility] Manju Bryson PA J20.9 Acute bronchitis, unspecified Z68.1 Body mass index (BMI) 19.9 or less, adult Office Visit 08/26/2018 10:45a [facility] Manju Bryson PA R30.0 Dysuria Z68.1 Body mass index (BMI) 19.9 or less, adult Office Visit 07/18/2018 2:45p [facility] Geremias Chery DO K50.819 Crohn's disease of both small and lg int w unsp comp M54.5 Low back pain J30.9 Allergic rhinitis, unspecified G43.009 Migraine w/o aura, not intractable, w/o status migrainosus G47.00 Insomnia, unspecified F17.210 Nicotine dependence, cigarettes, uncomplicated N31.9 Neuromuscular dysfunction of bladder, unspecified M25.561 Pain in RIGHT knee M54.2 Cervicalgia M54.6 Pain in thoracic spine Z68.1 Body mass index (BMI) 19.9 or less, adult Office Visit 04/23/2018 1:45p [facility] Geremias Chery DO R07.9 Chest pain, unspecified F43.0 Acute stress reaction M54.2 Cervicalgia Z68.1 Body mass index (BMI) 19.9 or less, adult Office Visit 01/29/2018 8:30a [facility] Geremias Chery DO R53.83 Other fatigue K50.819 Crohn's disease of both small and lg int w unsp comp M54.5 Low back pain J30.9 Allergic rhinitis, unspecified G43.009 Migraine w/o aura, not intractable, w/o status migrainosus G47.00 Insomnia, unspecified F17.210 Nicotine dependence, cigarettes, uncomplicated N31.9 Neuromuscular dysfunction of bladder, unspecified M25.561 Pain in RIGHT knee M54.2 Cervicalgia M54.6 Pain in thoracic spine R05 Cough Z68.1 Body mass index (BMI) 19.9 or less, adult Office Visit 10/09/2017 4:15p [facility] Manju Bryson PA J01.90 Acute sinusitis, unspecified R35.0 Frequency of micturition Office Visit 07/31/2017 8:30a [facility] Geremias Chery DO K50.819 Crohn's disease of both small and lg int w unsp comp M54.5 Low back pain J30.9 Allergic rhinitis, unspecified G43.009 Migraine w/o aura, not intractable, w/o status migrainosus G47.00 Insomnia, unspecified F17.210 Nicotine dependence, cigarettes, uncomplicated N31.9 Neuromuscular dysfunction of bladder, unspecified M25.561 Pain in RIGHT knee M54.2 Cervicalgia M54.6 Pain in thoracic spine Office Visit 06/19/2017 10:30a [facility] Manju Bryson PA R21 Rash and other nonspecific skin eruption Office Visit 01/25/2017 8:15a [facility] Geremias Chery DO K50.819 Crohn's disease of both small and lg int w unsp comp M54.5 Low back pain J30.9 Allergic rhinitis, unspecified G43.009 Migraine w/o aura, not intractable, w/o status migrainosus G47.00 Insomnia, unspecified F17.210 Nicotine dependence, cigarettes, uncomplicated N31.9 Neuromuscular dysfunction of bladder, unspecified M25.561 Pain in RIGHT knee Office Visit 01/04/2017 4:00p [facility] Geremias Chery DO H00.014 Hordeolum externum LEFT upper eyelid Office Visit 12/06/2016 11:00a [facility] Geremias Chery DO G44.209 Tension- type headache, unspecified, not intractable R80.9 Proteinuria, unspecified Office Visit 08/15/2016 8:45a [facility] Geremias Chery DO M54.5 Low back pain Office Visit 07/11/2016 9:45a [facility] Geremias Chery DO M54.5 Low back pain M25.551 Pain in RIGHT hip N20.0 Calculus of kidney Office Visit 05/17/2016 11:00a [facility] Geremias Chery DO M25.551 Pain in RIGHT hip M54.5 Low back pain Office Visit 05/05/2016 9:00a [facility] Gerda Kevin PA K05.01 Acute gingivitis, non-plaque induced H68.002 Unspecified Eustachian salpingitis, LEFT ear Office Visit 01/11/2016 10:00a [facility] Geremias Chery DO J30.9 Allergic rhinitis, unspecified G43.009 Migraine w/o aura, not intractable, w/o status migrainosus G47.00 Insomnia, unspecified K50.819 Crohn's disease of both small and lg int w unsp comp F17.210 Nicotine dependence, cigarettes, uncomplicated N31.9 Neuromuscular dysfunction of bladder, unspecified M25.561 Pain in RIGHT knee R20.9 Unspecified disturbances of skin sensation F43.0 Acute stress reaction Office Visit 12/13/2015 9:00a [facility] Geremias Chery DO J30.9 Allergic rhinitis, unspecified G43.009 Migraine w/o aura, not intractable, w/o status migrainosus G47.00 Insomnia, unspecified K50.819 Crohn's disease of both small and lg int w unsp comp F17.210 Nicotine dependence, cigarettes, uncomplicated N31.9 Neuromuscular dysfunction of bladder, unspecified M25.561 Pain in RIGHT knee R20.9 Unspecified disturbances of skin sensation F43.0 Acute stress reaction R03.0 Elevated blood-pressure reading, w/o diagnosis of htn Office Visit 06/14/2015 9:00a [facility] Geremias Chery DO J30.9 Allergic rhinitis, unspecified G43.009 Migraine w/o aura, not intractable, w/o status migrainosus G47.00 Insomnia, unspecified K50.819 Crohn's disease of both small and lg int w unsp comp F17.210 Nicotine dependence, cigarettes, uncomplicated N83.20 Unspecified ovarian cysts N31.9 Neuromuscular dysfunction of bladder, unspecified M25.561 Pain in RIGHT knee Office Visit 05/09/2015 1:30p [facility] Gerda Kevin PA J02.9 Acute pharyngitis, unspecified J01.80 Other acute sinusitis Office Visit 12/07/2014 9:15a [facility] Geremias Chery DO 346.10 Migraine Common W/O Intractable 780.52 Sleep Disturbance, Insomnia Unspecified 555.2 Enteritis Small Intestine W/ Large Intestine 305.1 Tobacco Use Disorder 620.2 Ovarian Cyst Other & Unspec 596.54 Neurogenic Bladder NOS Plan of Treatment Future Appointment(s):07/21/2019 9:00 am - Geremias Chery DO at [facility]02/24/2019 - Manju Bryson PAJ20.9 Acute bronchitis, unspecifiedNew Medication: Azithromycin 250 mg - 2 tablets by mouth on day 1 then 1 tablet on days 2- 5Comments:With immunosuppressant use, will cover with ABXInhaler with help with chest congestionContinue OTC treatmentsCall with worsening/persisting symptomsFollow up:PrnM54.2 CervicalgiaComments:Refill of hydrocodone sent today
[2019-02-28 11:03] VITALS: BP 139/94
[2019-02-28] MEDS ORDERED: Albuterol/Ipratropium NEB.SOL* Albuterol 2.5 MG/Ipratropium 0.5 MG 3 ML INH ONE (11:17)
--- NOTE | 2019-02-28 11:20 | UC ---
Respiratory Complaint HPI - HPI Summary HPI Summary: Pt was at PCP office with unproductive but strong cough, and SOB, pt rx'ed a z- pack. Pt on 5th day of z-pack, but cough hasn't resolved, and she is still experiencing dyspnea on exertion and is wheezing. Patient using an albuterol inhaler at home BID which helps for a little bit. - History of Current Complaint Chief Complaint: UCRespiratory Stated Complaint: COUGH Time Seen by Provider: 02/28/19 11:02 Hx Obtained From: Patient Hx Last Menstrual Period: n/a ?: No Onset/Duration: Sudden Onset, Lasting Days Timing: Constant Severity Initially: Mild Severity Currently: Mild Pain Intensity: 0 Character: Cough: Nonproductive Aggravating Factors: Exertion, Deep Breaths Alleviating Factors: Nothing Associated Signs And Symptoms: Positive: Dyspnea, Wheezing, Sinus Discomfort - Allergies/Home Medications Allergies/Adverse Reactions: Allergies Allergy/AdvReac Type Severity Reaction Status Date / Time clindamycin Allergy Severe Swelling Verified 02/28/19 11:03 Of Face,Lips,& Throat Penicillins Allergy Severe Rash Verified 02/28/19 11:03 povidone-iodine Allergy Severe Rash Verified 02/28/19 11:03 [From Betadine] soap [From Betadine] Allergy Severe Rash Verified 02/28/19 11:03 Home Medications: Home Medications Guaifenesin/Dextromethorphan [Robitussin Gpugm-Dhrov-Okrq Dm] 1 tab PO BID 02/28 [History Confirmed 02/28/19] Hydrocodone/Acetaminophen [Vicodin 5-300 mg Tablet] 1 tab PO DAILY 02/28/19 [ History Confirmed 02/28/19] Ustekinumab [Stelara] 1 syringe INJ MONTHLY 02/28/19 [History Confirmed 02/28/19 ] predniSONE [Prednisone 5 MG TAB] 2 tab PO DAILY 02/28/19 [History Confirmed ] PMH/Surg Hx/FS Hx/Imm Hx Previously Healthy: Yes - Surgical History Surgical History: Yes Surgery Procedure, Year, and Place: MULTIPLE SURGERIES D/T [facility]OHN[facility]S - COLECTOMY, ILEOSTOMY, SMALL BOWEL RESECTION X4;. LITHOTRIPSY 2010;. BILAT CARPAL TUNNEL 2011;. CONE BIOPSY 2011;. TONSILECTOMY - as a child;. HYSTEROSCOPY 07/19; - Family History Known Family History: Positive: Cardiac Disease - Social History Alcohol Use: None Substance Use Type: None Smoking Status (MU): Light Every Day Tobacco Smoker Type: Cigarettes Amount Used/How Often: 1/2 ppd Have You Smoked in the Last Year: Yes Household Exposure Type: Cigarettes Review of Systems All Other Systems Reviewed And Are Negative: Yes Constitutional: Positive: Fever, Fatigue ENT: Positive: Sore Throat, Sinus Congestion Respiratory: Positive: Shortness Of Breath, Cough Neurological: Positive: Headache Is Patient Immunocompromised?: No Physical Exam Triage Information Reviewed: Yes Appearance: Well-Nourished, Ill-Appearing, Pain Distress Vital Signs: Initial Vital Signs Temp 98.1 F 02/28/19 10:58 Pulse 86 02/28/19 10:58 Resp 16 02/28/19 10:58 BP 139/94 02/28/19 10:58 Pulse Ox 97 02/28/19 10:58 Vital Signs Reviewed: Yes Eye Exam: Normal ENT: Positive: Pharyngeal erythema - with PND, Nasal congestion, TMs normal, Sinus tenderness Neck exam: Normal Respiratory: Positive: Chest non-tender, No respiratory distress, No accessory muscle use, Rhonchi, Wheezing, Inspiration Cardiovascular Exam: Normal Cardiovascular: Positive: RRR, No Murmur, Pulses Normal Abdominal Exam: Normal Bowel Sounds: Positive: Present Musculoskeletal Exam: Normal Neurological Exam: Normal Psychological Exam: Normal Skin Exam: Normal Respiratory Course/Dx - Course Course Of Treatment: hx obtained,exam performed ,meds reviewed, treated with a DUo NEB treatment, patient experienced some relief, but still had cackels and wheezing in the right lung. chest xray obtained. - Differential Dx/Diagnosis Differential Diagnosis/HQI/PQRI: Bronchitis, Laryngitis, Sinusitis Provider Diagnosis: Bronchitis Discharge - Sign-Out/Discharge Documenting (check all that apply): Patient Departure All imaging exams completed and their final reports reviewed: Yes - Discharge Plan Condition: Stable Disposition: HOME Patient Education Materials: Acute Bronchitis (ED) Referrals: Geremias Chery DO [Primary Care Provider] - Additional Instructions: 1. finish the current azithromycin script 2. Use the albuterol inhaler every 4 hours for the next 24 hours 3. Honey and vicks for the cough, warm fluids and steam showers to help with the mucus 4. Salt water gargles before and after bedtime and as needed throughout the day 5. FOllow up if you develop worsening respiratory issues. - Billing Disposition and Condition Condition: STABLE Disposition: Home
== END 2019-02-28 12:24 | disposition home or self-care (01) ==
LOC: UCCORT 10:49
DX: J40 Bronchitis, not specified as acute or chronic (principal); Z88.0 Allergy status to penicillin; Z88.1 Allergy status to other antibiotic agents; F17.210 Nicotine dependence, cigarettes, uncomplicated
CPT/HCPCS: 71046; 99211; A9270-GY; G0463

== ENCOUNTER 2019-08-04 11:18 | Emergency (ER) | payer MEDICARE, BC ==
--- OUTSIDE RECORDS SUMMARY | 2019-08-04 11:30 | XMS REPORT | Continuity of Care Document ---
:1955 External Reference #:[id number] Author Name Nigel Lynne MD Address [address] [place] [address] Care Team Providers Name Role Phone Geremias Chery DO - Family Medicine Care Team Information Automatic Trimming Sewer [phone] Problems Description No Information Available Social History Type Date Description Comments Sex Unknown ETOH Use Denies alcohol use Tobacco Use Start: Unknown Patient is a current smoker, smokes every day Recreational Drug Use Denies Drug Use Smoking Status Reviewed: 06/19/19 Patient is a current smoker, smokes every day Allergies, Adverse Reactions, Alerts Active Allergies Reaction Severity Comments Date Penicillin 09/19/2018 Clindamycin 09/19/2018 Medications Active Medications SIG Qnty Indications Ordering Provider Date Latanoprost 1 drop each eye 2.500ml H40.053 Nigel Lynne MD 05/12/2019 0.005% at night Solution Uribel 1 tab by mouth 20caps Brunilda Vela, 09/19/2018 118mg Capsules up to four M.D. times a day daw_! Lorazepam prn Geremias Chery DO 1mg Tablets Hydrocodone-Acetamino prn Geremias Chery, DO phen 5-325mg Tablets Co Q 10 1 by mouth Unknown 100mg Capsules every day GNP [place] Biloba 1 cap daily Unknown Extract 60mg Capsules Zinc And Vitamin C 1 po daily Unknown Gummies Multi For Her 1 tab by mouth Unknown Tablets every daily Michelle Puente MD 90mg/ml Soln Prefill Syringe Immunizations Description No Information Available Vital Signs Date Vital Result Comment 11/14/2018 9:21am BP Systolic Sitting Left Arm 112 mmHg BP Diastolic Sitting Left Arm 77 mmHg Body Temperature 98.0 F Heart Rate 82 /min Respiratory Rate 16 /min Height 58 inches 4'10" Weight 93.50 lb BMI (Body Mass Index) 19.5 kg/m2 BSA (Body Surface Area) 1.32 m2 [place] body weight in kilograms 45 kg O2 % BldC Oximetry 93 % cold fingers Pain Level 0 09/19/2018 10:21am BP Systolic 118 mmHg BP Diastolic 81 mmHg Body Temperature 97.2 F Heart Rate 84 /min Respiratory Rate 16 /min Height 58 inches 4'10" Weight 94.12 lb BMI (Body Mass Index) 19.7 kg/m2 BSA (Body Surface Area) 1.32 m2 [place] body weight in kilograms 45 kg O2 % BldC Oximetry 98 % Results Description No Information Available Procedures Date Code Description Status 06/19/2019 28325 Eye Exam Est Patient Comprehensive Completed 05/12/2019 30012 Scanning Computerized Ophthalmic Diagnostic Imaging, Completed Posterior 05/12/2019 90558 Visual Field Exam Extended, Unilateral Or Bilateral Completed 05/12/2019 87511 Eye Exam Est Patient Comprehensive Completed 02/09/2019 55975 Eye Exam New Patient Comprehensive Completed Medical Devices Description No Information Available Encounters Description No Information Available Assessments Date Code Description Provider 06/19/2019 H40.053 Ocular hypertension, bilateral Nigel Lynne MD 06/19/2019 H04.123 Dry eye syndrome of bilateral lacrimal glands Nigel Lynne MD 06/19/2019 H43.813 Vitreous degeneration, bilateral Nigel Lynne MD 05/12/2019 H40.053 Ocular hypertension, bilateral Nigel Lynne MD 05/12/2019 H04.123 Dry eye syndrome of bilateral lacrimal glands Nigel Lynne MD 05/12/2019 H43.813 Vitreous degeneration, bilateral Nigel Lynne MD 05/12/2019 K50.918 Crohn's disease, unspecified, with other Nigel Lynne MD complication 02/09/2019 H40.053 Ocular hypertension, bilateral Nigel Lynne MD 02/09/2019 H04.123 Dry eye syndrome of bilateral lacrimal glands Nigel Lynne MD 02/09/2019 H43.813 Vitreous degeneration, bilateral Nigel Lynne MD 02/09/2019 K50.918 Crohn's disease, unspecified, with other Nigel Lynne MD complication Plan of Treatment Future Appointment(s):12/18/2019 8:45 am - Nigel Lynne MD at Ophthalmology Functional Status Description No Information Available Mental Status Description No Information Available Referrals Description No Information Available
--- OUTSIDE RECORDS SUMMARY | 2019-08-04 11:30 | XMS REPORT | Continuity of Care Document ---
:1955 External Reference #:[id number] Author Name Geremias Chery DO Address [address] [place] [id number] Problems Active Problems Provider Date Tobacco user Geremias Chery DO Onset: 06/04/2014 Crohn's disease of small AND large intestines Geremias Chery DO Onset: 06/04 Social History Type Date Description Comments Sex Unknown Tobacco Use Start: Unknown Current Cigarette Smoker 5-10 Cigarettes Daily ETOH Use Occasionally consumes wine Recreational Drug Use Denies Drug Use Tobacco Use Start: Unknown Patient is a current smoker, smokes every day Smoking Status Reviewed: 07/22/19 Patient is a current smoker, smokes every day Allergies, Adverse Reactions, Alerts Active Allergies Reaction Severity Comments Date Penicillin 06/04/2014 Clindamycin Lump In Throat 12/06/2016 Medications Active Medications SIG Qnty Indications Ordering Provider Date Coq-10 Geremias Chery, 08/26/2018 100mg Capsules DO ER Hydrocodone-Acetamino 1 by mouth every 120tabs Geremias Chery, 08/07/2016 phen 6 hours as DO 5-325mg Tablets needed Lorazepam 1/2 to 1 by 30tabs Geremias Chery, 12/07/2014 1mg Tablets mouth every DO night at bedtime as needed anxiety - DO Not Fill Until 07/25 Stelara Unknown 45mg/0.5ML Solution Latanoprost Nigel Lynne DR 0.005% Solution History Medications Azithromycin 2 tablets by 6tabs J20.9 Geremias Chery, 02/24/2019 - 250mg mouth on day 1 DO 03/01/2019 Tablets then 1 tablet on days 2-5 Immunizations CPT Code Status Date Vaccine Lot # [id number] Refused 07/22/2019 Influenza Vac, Quadrivalent, Split, 0.5mL Dosage, Im Use [id number] Refused 07/22/2019 Prevnar 13 Pneumococal Conjugate Vaccine [id number] Refused 01/19/2019 Tdap (Adacel) Ages 7 And Above Only [id number] Refused 04/23/2018 Afluria Imunization Vital Signs Date Vital Result Comment 07/22/2019 2:57pm Weight 97.00 lb Heart Rate 74 /min BP Systolic 112 mmHg BP Diastolic 74 mmHg Respiratory Rate 17 /min Height 57.5 inches 4'9.50" (07/2019) BMI (Body Mass Index) 20.6 kg/m2 02/24/2019 10:57am Body Temperature 97.0 F Weight 104.00 lb Heart Rate 87 /min BP Systolic 120 mmHg BP Diastolic 78 mmHg Respiratory Rate 18 /min Height 58 inches 4'10" O2 % BldC Oximetry 98 % BMI (Body Mass Index) 21.7 kg/m2 Results Description No Information Available Procedures Date Code Description Status 07/22/2019 97281 Brief Emotional/Behav Assessment W/ Scoring Doc Per Completed Standard Inst 07/15/2019 68367943 Mammogram Completed 02/24/2019 82803 Measure Blood Oxygen Level Single Determination Completed 10/08/2018 88271584 Colonoscopy Completed 06/21/2016 244671874 Bone Mineral Density Test Completed Medical Devices Description No Information Available Encounters Type Date Location Provider Dx Diagnosis Office Visit 02/24/2019 [facility] Manju Bryson PA J20.9 Acute bronchitis, 10:45a unspecified M54.2 Cervicalgia Assessments Date Code Description Provider 07/22/2019 Z00.00 Encounter for general adult medical Geremias Chery DO examination without abnormal findings 07/22/2019 K50.819 Crohn's disease of both small and large Geremias Chery DO intestine with unspe 07/22/2019 M54.5 Low back pain Geremias Chery DO 07/22/2019 J30.9 Allergic rhinitis, unspecified Geremias Chery DO 07/22/2019 G43.009 Migraine without aura, not intractable, Geremias Chery DO without status migra 07/22/2019 G47.00 Insomnia, unspecified Geremias Chery DO 07/22/2019 F17.210 Nicotine dependence, cigarettes, uncomplicated Geremias Chery DO 07/22/2019 N31.9 Neuromuscular dysfunction of bladder, Geremias Chery, unspecified 07/22/2019 M25.561 Pain in RIGHT knee Geremias Chery, 07/22/2019 M54.2 Cervicalgia Geremias Chery, 07/22/2019 M54.6 Pain in thoracic spine Geremias Chery, 07/22/2019 R39.15 Urgency of urination Geremias Chery, 07/22/2019 Z68.1 Body mass index (BMI) 19.9 or less, adult Geremias Chery, 02/24/2019 J20.9 Acute bronchitis, unspecified Mnaju Bryson PA 02/24/2019 M54.2 Cervicalgia Manju Bryson PA Plan of Treatment Future Appointment(s):01/20/2020 1:15 pm - [facility]DO at [facility]07/22/2019 - Geremias Chery DOZ00.00 Encounter for general adult medical examination without abnormal findingsFollow up:Follow up with me in 6 months.K50.819 Crohn' s disease of both small and large intestine with unspeComments:She has both good and bad days. the patient to continue with Stelara as directed. She would like to change her Stelara to another biologic like Humira as she thinks that Humira was more effective. I told the patient to speak to Dr. Costa about this. She is also considering doing another surgery. Will likely see a surgeon in the next few months to discuss this. We will continue to monitor.M54.5 Low back painJ30.9 Allergic rhinitis, wsvjcdajjamW74.009 Migraine without aura, not intractable, without status ragirC36.00 Insomnia, ismktblonngD05.210 Nicotine dependence, cigarettes, syznehvpofiqtS78.9 Neuromuscular dysfunction of bladder, qwnxfvtqechC57.561 Pain in RIGHT kneeM54.2 ByhkohtwzbxW26.6 Pain in thoracic spineComments:Pt has pain in the thoracic spine- Has degenerative changes on x-ray. Will treat symptomatically.R39.15 Urgency of urinationComments:Continue taking Uribel as needed for this. Will continue to monitor.Z68.1 Body mass index (BMI) 19.9 or less, adultComments:BMI is at 19.9. The patient should try to lose weight with low-calorie diet and exercises. We willcontinue to monitor weight and BMI periodically. Functional Status Description No Information Available Mental Status Description No Information Available Referrals Description No Information Available
--- OUTSIDE RECORDS SUMMARY | 2019-08-04 11:30 | XMS REPORT | Continuity of Care Document ---
:1955 External Reference #:[id number] Author Name Nigel Lynne MD (transmitted by agent of provider Deepika Moore) Address [address] [place] [id number] Care Team Providers Name Role Phone Geremias Chery DO - Family Medicine Care Team Information [employer] Supervisor [phone] Problems Description No Information Available Social History Type Date Description Comments Sex Unknown ETOH Use Denies alcohol use Tobacco Use Start: Unknown Patient is a current smoker, smokes every day Recreational Drug Use Denies Drug Use Smoking Status Reviewed: 05/12/19 Patient is a current smoker, smokes every day Allergies, Adverse Reactions, Alerts Active Allergies Reaction Severity Comments Date Penicillin 09/19/2018 Clindamycin 09/19/2018 Medications Active Medications SIG Qnty Indications Ordering Provider Date Latanoprost 1 drop each eye 2.500ml H40.053 Nigel Lynne MD 05/12/2019 0.005% at night Solution Uribel 1 tab by mouth 20caps Brunilda Veal, 09/19/2018 118mg Capsules up to four M.D. times a day daw_! Lorazepam prn Geremias Chery DO 1mg Tablets Hydrocodone-Acetamino prn Geremias Chery DO phen 5-325mg Tablets Co Q 10 [...] kg/m2 BSA (Body Surface Area) 1.32 m2 [place] body weight in kilograms 45 kg O2 % BldC Oximetry 93 % cold fingers Pain Level 0 09/19/2018 10:21am BP Systolic 118 mmHg BP Diastolic 81 mmHg Body Temperature 97.2 F Heart Rate 84 /min Respiratory Rate 16 /min Height 58 inches 4'10" Weight 94.12 lb BMI (Body Mass Index) 19.7 kg/m2 BSA (Body Surface Area) 1.32 m2 [place] body weight in kilograms 45 kg O2 % BldC Oximetry 98 % Results Description No Information Available Procedures Date Code Description Status 05/12/2019 94004 Scanning Computerized Ophthalmic Diagnostic Imaging, Completed Posterior 05/12/2019 10418 Visual Field Exam Extended, Unilateral Or Bilateral Completed 05/12/2019 33019 Eye Exam Est Patient Comprehensive Completed 02/09/2019 77445 Eye Exam New Patient Comprehensive Completed Medical Devices Description No Information Available Encounters Description No Information Available Assessments Date Code Description Provider 05/12/2019 H40.053 Ocular hypertension, bilateral Nigel Lynne [...] Nigel Lynne MD complication Plan of Treatment No Information Available Functional Status Description No Information Available Mental Status Description No Information Available Referrals Description No Information Available
[2019-08-04 12:03] VITALS: BP 114/78
--- NOTE | 2019-08-04 12:29 | UC ---
Respiratory Complaint HPI - HPI Summary HPI Summary: Pt presents with c/o fatigue, sinus congestion, pressure, pain, cough, wheezing X 3 weeks. - History of Current Complaint Chief Complaint: UCRespiratory Stated Complaint: COUGH Time Seen by Provider: 08/04/19 12:16 Hx Obtained From: Patient Hx Last Menstrual Period: n/a ?: No Onset/Duration: Gradual Onset, Lasting Weeks, Still Present, Worse Since - onset Timing: Constant Severity Initially: Mild Severity Currently: Moderate Pain Intensity: 0 Character: Cough: Nonproductive Aggravating Factors: Exertion, Deep Breaths, Recumbent Position Alleviating Factors: Nothing Associated Signs And Symptoms: Positive: Wheezing, URI, Nasal Congestion, Sinus Discomfort - Risk Factors Pulmonary Embolism Risk Factors: Negative Cardiac Risk Factors: Negative Pseudomonas Risk Factors: Chronic Lung Disease - asthma Tuberculosis Risk Factors: Negative - Allergies/Home Medications Allergies/Adverse Reactions: Allergies Allergy/AdvReac Type Severity Reaction Status Date / Time clindamycin Allergy Severe Swelling Verified 08/04/19 11:58 Of Face,Lips,& Throat Penicillins Allergy Severe Rash Verified 08/04/19 11:58 povidone-iodine Allergy Severe Rash Verified 08/04/19 11:58 [From Betadine] soap [From Betadine] Allergy Severe Rash Verified 08/04/19 11:58 Home Medications: Home Medications Albuterol HFA INHALER* [Ventolin HFA Inhaler*] 2 puff INH Q4H PRN 08/04/19 [ History Confirmed 08/04/19] Latanoprost 0.005%* [Xalatan 0.005%*] 1 drop BEDTIME 08/04/19 [History Confirmed 08/04/19] PMH/Surg Hx/FS Hx/Imm Hx Previously Healthy: Yes GI/ History: Other - crohns - Surgical History Surgical History: Yes Surgery Procedure, Year, and Place: MULTIPLE SURGERIES D/T [facility] - COLECTOMY, ILEOSTOMY, SMALL BOWEL RESECTION X4;. LITHOTRIPSY 2010;. BILAT CARPAL TUNNEL 2011;. CONE BIOPSY 2011;. TONSILECTOMY - as a child;. HYSTEROSCOPY 07/19; - Family History Known Family History: Positive: Cardiac Disease - Social History Occupation: Retired Lives: With Family Alcohol Use: None Substance Use Type: None Smoking Status (MU): Light Every Day Tobacco Smoker Type: Cigarettes Amount Used/How Often: 1/2 ppd Have You Smoked in the Last Year: Yes Household Exposure Type: Cigarettes - Immunization History Vaccination Up to Date: Yes Review of Systems All Other Systems Reviewed And Are Negative: Yes Constitutional: Positive: Fever, Chills, Fatigue Skin: Positive: Negative Eyes: Positive: Negative ENT: Positive: Sore Throat, Sinus Congestion, Sinus Pain/Tenderness Respiratory: Positive: Cough Cardiovascular: Positive: Negative Gastrointestinal: Positive: Negative Genitourinary: Positive: Negative Motor: Positive: Negative Neurovascular: Positive: Negative Musculoskeletal: Positive: Negative Neurological: Positive: Negative Psychological: Positive: Negative Is Patient Immunocompromised?: No Physical Exam Triage Information Reviewed: Yes Appearance: Ill-Appearing Vital Signs: Initial Vital Signs Temp 98.5 F 08/04/19 12:00 Pulse 80 08/04/19 12:00 Resp 16 08/04/19 12:00 BP 114/78 08/04/19 12:00 Pulse Ox 97 08/04/19 12:00 Vital Signs Reviewed: Yes Eye Exam: Normal ENT: Positive: Pharynx normal, Nasal congestion, Sinus tenderness Dental Exam: Normal Neck exam: Normal Respiratory: Positive: Wheezing, Expiration Cardiovascular Exam: Normal Musculoskeletal Exam: Normal Neurological Exam: Normal Psychological Exam: Normal Skin Exam: Normal Respiratory Course/Dx - Differential Dx/Diagnosis Differential Diagnosis/HQI/PQRI: Bronchitis, Influenza, Lower Resp Infection Provider Diagnosis: Bronchitis Discharge ED - Sign-Out/Discharge Documenting (check all that apply): Patient Departure All imaging exams completed and their final reports reviewed: No Studies - Discharge Plan Condition: Stable Disposition: HOME Prescriptions: Azithromycin TAB* [Zithromax TAB (Z-NIKHIL) 250 mg #6 tabs] 2 tab PO .TODAY, THEN 1 DAILY #1 nikhil Benzonatate CAP* [Tessalon 100 MG CAP*] 100 mg PO Q8H PRN #30 cap PRN Reason: Cough predniSONE 10 mg TAB [Deltasone 10 MG TAB*] 30 mg PO DAILY #12 tab Patient Education Materials: Acute Bronchitis (ED) Referrals: Geremias Chery DO [Primary Care Provider] - If Needed - Billing Disposition and Condition Condition: STABLE Disposition: Home
== END 2019-08-04 12:36 | disposition home or self-care (01) ==
LOC: UCCORT 11:18
DX: J40 Bronchitis, not specified as acute or chronic (principal); J02.9 Acute pharyngitis, unspecified; K50.90 Crohn's disease, unspecified, without complications; F17.210 Nicotine dependence, cigarettes, uncomplicated; Z88.1 Allergy status to other antibiotic agents; Z88.0 Allergy status to penicillin; Z91.09 Other allergy status, other than to drugs and biological substances; Z88.8 Allergy status to other drugs, medicaments and biological substances
CPT/HCPCS: 99212; G0463

== ENCOUNTER 2024-07-13 09:18 | Observation (INO) ==
[~2024-07-13 09:18] MED LIST: NS 0.45% 1000 ml BAG 1,000 ML IV SCH; Naloxone 0.4 mg VIAL 0.4 mg/ml 1 ml VIAL IV PRN; Ondansetron 4 mg VIAL 2 MG/ML 2 ml VIAL IV PRN
[2024-07-13] MEDS ORDERED: fentaNYL 100 mcg/2 ml 50 MCG/ML VIAL ONE ×5 (09:37→17:51)
[2024-07-13] MEDS ORDERED: Midazolam 2 mg/2 ml VIAL 1 mg/ml 2 ml VIAL (2 mg) ONE (09:37)
[2024-07-13] MEDS ORDERED: Tranexamic Acid 1 GM/100ML BAG 2,000 MG/200 ML BAG IV ONE (09:39)
[2024-07-13] MEDS ORDERED: ceFAZolin 2 GM PREMIX 2 GM/50 ML BAG ONE (09:39)
[2024-07-13 09:56] LABS: Rapid COVID-19 Molecular Undetected (Undetected)
[2024-07-13] MEDS ORDERED: Lidocaine 1% w EPI 1:100,000 MDV 50 ML VIAL ONE (11:15)
[2024-07-13] MEDS ORDERED: Vancomycin 1,000 MG VIAL ONE (11:16)
[2024-07-13] MEDS ORDERED: Midazolam 5 mg/5 ml VIAL 1 mg/ml 5 ml VIAL (5 mg) ONE (11:59)
[2024-07-13] MEDS ORDERED: ROPIVACAINE 5 MG/ML 30 ML BTL (0.5%) ONE (12:00)
[2024-07-13] MEDS ORDERED: Lidocaine 2% PF 5 ML VIAL ONE (12:25)
[2024-07-13] MEDS ORDERED: Rocuronium 50 mg VIAL 10 mg/ml 5 ml VIAL (50 mg) ONE (12:25)
[2024-07-13] MEDS ORDERED: Ondansetron 4 mg VIAL 2 MG/ML 2 ml VIAL ONE (12:25)
[2024-07-13] MEDS ORDERED: Sterile Water for Inj 10 ML ONE (15:02)
[2024-07-13] MEDS ORDERED: Dexamethasone IV 4 MG/ML VIAL 1 ml VIAL ONE (15:37)
[2024-07-13] MEDS ORDERED: Phenylephrine IV 10 MG/ML 1 ml VIAL ONE (16:35)
[2024-07-13] MEDS ORDERED: Calcium Carb (TUMS) 500 mg CHEW TAB PO PRN (17:41)
[2024-07-13] MEDS ORDERED: Ondansetron 4 mg VIAL 2 MG/ML 2 ml VIAL IV PRN (17:41)
[2024-07-13] MEDS ORDERED: Lactulose 30 ml UDC PO PRN (17:41)
[2024-07-13] MEDS ORDERED: Magnesium Hydroxide LIQ 30 ML UDC PO PRN (17:41)
[2024-07-13] MEDS ORDERED: Ondansetron ODT 4 mg TAB 4 MG TAB PO PRN (17:41)
[2024-07-13] MEDS: fentaNYL 100 mcg/2 ml 50 MCG/ML VIAL IV PRN (17:48)
[2024-07-13] MEDS ORDERED: HYDROmorphone 1 MG/1 ML SYRINGE ONE (18:20)
[2024-07-13] MEDS: HYDROmorphone 1 MG/1 ML SYRINGE IV PRN (18:21)
[2024-07-13] MEDS ORDERED: Acetaminophen IV 1 GM/100ML 1,000 MG/100 ML BAG IV ONE (18:23)
[2024-07-13] MEDS: Acetaminophen IV 1 GM/100ML 1,000 MG/100 ML BAG IV ONE (18:25)
[2024-07-13] MEDS: Lactated Ringers 1000 ml BAG 1,000 ML IV SCH (20:35)
[2024-07-13] MEDS: Buffered Lidocaine 1% SYRIN 1 ml INTRADERM ONE (21:25)
[2024-07-13] MEDS: Morphine 2 MG/ML SYRINGE IV PRN (21:43)
[2024-07-13] MEDS: ceFAZolin 2 GM PREMIX 2 GM/50 ML BAG IV SCH (22:48)
[2024-07-13] MEDS ORDERED: Albuterol HFA INHALER 8 gm MDI INH PRN (23:04)
[2024-07-14] MEDS: Magnesium Hydroxide LIQ 30 ML UDC PO SCH (00:27)
[2024-07-14] MEDS: Latanoprost 0.005% 2.5 ml BTL BOTH EYES SCH (03:58)
[2024-07-14 06:03] LABS: Hematocrit 31.7 % (35-45); Hemoglobin 11.1 g/dL (11.5-14.3); Mean Platelet Volume 8.3 fL (7.5-11.2); Platelet Count 233 10^3/uL (150-450)
[2024-07-14 06:30] LABS: Calcium 8.4 mg/dL (8.6-10.3); Creatinine, Serum 0.85 mg/dL (0.51-0.95); Potassium 3.8 mmol/L (3.5-5.0); eGFR CKD-EPI 73.7 (>60)
[2024-07-14] MEDS: Lactated Ringers 1000 ml BAG 1,000 ML IV SCH (06:55)
[2024-07-14] MEDS: Vitamin THERAPEUTIC TAB PO SCH (08:36)
[2024-07-14] MEDS: Diphenoxylat/Atrop 2.5-0.025mg TAB PO SCH (08:36)
[2024-07-14] MEDS: HYDROcodone/ACETAMIN 5/325 mg TAB PO PRN (11:08)
[2024-07-14 14:32] VITALS: BP 140/87
[2024-07-14] MEDS ORDERED: [UNRECOGNIZED DRUG - MIXTURE] PO SCH (21:00)
== END 2024-07-14 15:50 | disposition home or self-care (01) ==
LOC: OR 09:18 → SSU 09:18
PROVIDERS: ADMIT Orthopaedic Surgery; ATTEND Orthopaedic Surgery